=== PATIENT | male | born 1945 | race Caucasian/White ===

== ENCOUNTER 2023-04-07 02:10 | Outpatient (CLI) | payer OTHER, SELFPAY ==
[2023-04-07 08:45] LABS: Abs Immature Grans 0.05 10^3/uL (0.0-0.06); Absolute Lymphocyte Count 0.92 10^3/uL (1.2-3.4); Absolute Monocyte Count 0.88 10^3/uL (0.1-0.8); Basophils % 0.4; Eosinophils % 3.1; HCT 35.8 % (40.0-50.0); HGB 12.2 g/dL (13.5-17.5); Immature Grans % 0.4; Lymphocytes % 8.3; MCH 29.5 pg (27.0-33.0); MCHC 34.1 % (32.0-36.0); MCV 87 fL (80-95); MPV 8.4 fL (8.0-11.0); Monocytes % 7.9; Neutrophils % 79.9; Platelet Count 320 10^3/uL (130-400); RBC 4.14 10^6/uL (4.36-5.78); RDW 12.1 % (11.8-14.1); RDW-SD 38.6 fL; WBC 11.12 10^3/uL (4.4-10.8)
[2023-04-07 08:46] LABS: Absolute Basophil Count 0.04 10^3/uL (0.0-0.2); Absolute Eosinophil Count 0.34 10^3/uL (0.0-0.7); Absolute Neutrophil Count 8.88 10^3/uL (1.2-6.7)
[2023-04-07 09:01] LABS: ALT 13 U/L (16-63); AST 18 U/L (15-37); Albumin 3.8 g/dL (3.4-5.0); Alkaline Phosphatase 104 U/L (46-116); BUN 18 mg/dL (7-18); Bilirubin, Total 0.8 mg/dL (0.2-1.0); CREATININE 0.9 mg/dL (0.70-1.30); Calcium 9.5 mg/dL (8.5-10.1); Chloride 95 mmol/L (98-107); Estimated GFR 88.51 (mL/min/1.73m2); Glucose 213 mg/dL (74-106); Magnesium 1.8 mg/dL (1.8-2.4); Potassium 3.8 mmol/L (3.5-5.1); Sodium 132 mmol/L (136-145); Total Protein 7.6 g/dL (6.4-8.2)
== END 2023-04-07 02:11 | disposition home or self-care (01) ==
LOC: LBO 02:12
PROVIDERS: PCP Internal Medicine Medical Oncology; Visit Provider Internal Medicine Medical Oncology
DX: C15.9 Malignant neoplasm of esophagus, unspecified (principal)
CPT/HCPCS: 36415; 80053; 83735; 85025

== ENCOUNTER 2023-04-15 03:52 | Outpatient (CLI) | payer OTHER, SELFPAY ==
[2023-04-15 10:04] LABS: Abs Immature Grans 0.09 10^3/uL (0.0-0.06); Absolute Basophil Count 0.03 10^3/uL (0.0-0.2); Absolute Eosinophil Count 0.21 10^3/uL (0.0-0.7); Absolute Lymphocyte Count 0.37 10^3/uL (1.2-3.4); Absolute Monocyte Count 0.51 10^3/uL (0.1-0.8); Absolute Neutrophil Count 5.68 10^3/uL (1.2-6.7); Basophils % 0.4; HGB 11.3 g/dL (13.5-17.5); Immature Grans % 1.3; Lymphocytes % 5.4; MCH 29.8 pg (27.0-33.0); MCHC 34.2 % (32.0-36.0); MCV 87 fL (80-95); MPV 8.4 fL (8.0-11.0); Monocytes % 7.4; Neutrophils % 82.5; Platelet Count 344 10^3/uL (130-400); RBC 3.79 10^6/uL (4.36-5.78); RDW-SD 38.5 fL; WBC 6.89 10^3/uL (4.4-10.8)
[2023-04-15 10:34] LABS: ALT 17 U/L (16-63); AST 14 U/L (15-37); Albumin 3.4 g/dL (3.4-5.0); Alkaline Phosphatase 93 U/L (46-116); Anion Gap 9.8 mmol/L (3-11); BUN 17 mg/dL (7-18); Bilirubin, Total 0.6 mg/dL (0.2-1.0); CO2 29.2 mmol/L (21.0-32.0); CREATININE 0.9 mg/dL (0.70-1.30); Calcium 9.1 mg/dL (8.5-10.1); Chloride 94 mmol/L (98-107); Estimated GFR 87.96 (mL/min/1.73m2); Glucose 239 mg/dL (74-106); Magnesium 1.8 mg/dL (1.8-2.4); Potassium 3.4 mmol/L (3.5-5.1); Sodium 133 mmol/L (136-145); Total Protein 7.1 g/dL (6.4-8.2)
== END 2023-04-15 03:53 | disposition home or self-care (01) ==
LOC: LBO 03:52
PROVIDERS: PCP Internal Medicine Medical Oncology; Visit Provider Internal Medicine Medical Oncology
DX: C15.9 Malignant neoplasm of esophagus, unspecified (principal)
CPT/HCPCS: 36415; 80053; 83735; 85025

== ENCOUNTER 2023-04-21 03:37 | Outpatient (CLI) | payer OTHER, SELFPAY ==
[2023-04-21 10:19] LABS: Abs Immature Grans 0.07 10^3/uL (0.0-0.06); Absolute Basophil Count 0.04 10^3/uL (0.0-0.2); Absolute Eosinophil Count 0.07 10^3/uL (0.0-0.7); Absolute Lymphocyte Count 0.21 10^3/uL (1.2-3.4); Absolute Monocyte Count 0.23 10^3/uL (0.1-0.8); Basophils % 0.9; Eosinophils % 1.6; HCT 33.6 % (40.0-50.0); HGB 11.2 g/dL (13.5-17.5); Immature Grans % 1.6; Lymphocytes % 4.9; MCH 29.4 pg (27.0-33.0); MCHC 33.3 % (32.0-36.0); MCV 88 fL (80-95); MPV 8.5 fL (8.0-11.0); Monocytes % 5.4; Neutrophils % 85.6; Platelet Count 210 10^3/uL (130-400); RBC 3.81 10^6/uL (4.36-5.78); RDW 12.3 % (11.8-14.1); RDW-SD 39.5 fL; WBC 4.26 10^3/uL (4.4-10.8)
[2023-04-21 10:27] LABS: Absolute Neutrophil Count 3.65 10^3/uL (1.2-6.7)
[2023-04-21 10:38] LABS: ALT 25 U/L (16-63); AST 19 U/L (15-37); Albumin 3.4 g/dL (3.4-5.0); Alkaline Phosphatase 92 U/L (46-116); Anion Gap 8.1 mmol/L (3-11); BUN 12 mg/dL (7-18); Bilirubin, Total 0.9 mg/dL (0.2-1.0); CO2 26.9 mmol/L (21.0-32.0); CREATININE 0.8 mg/dL (0.70-1.30); Calcium 8.9 mg/dL (8.5-10.1); Chloride 97 mmol/L (98-107); Estimated GFR 91.15 (mL/min/1.73m2); Glucose 192 mg/dL (74-106); Magnesium 1.4 mg/dL (1.8-2.4); Potassium 3.9 mmol/L (3.5-5.1); Sodium 132 mmol/L (136-145); Total Protein 7.1 g/dL (6.4-8.2)
== END 2023-04-21 03:38 | disposition home or self-care (01) ==
LOC: LBO 03:37
PROVIDERS: PCP Internal Medicine Medical Oncology; Visit Provider Internal Medicine Medical Oncology
DX: C15.9 Malignant neoplasm of esophagus, unspecified (principal)
CPT/HCPCS: 36415; 80053; 83735; 85025

== ENCOUNTER 2023-04-28 04:27 | Outpatient (CLI) | payer OTHER, SELFPAY ==
[2023-04-28 09:57] LABS: Abs Immature Grans 0.02 10^3/uL (0.0-0.06); Absolute Basophil Count 0.03 10^3/uL (0.0-0.2); Absolute Eosinophil Count 0.02 10^3/uL (0.0-0.7); Absolute Lymphocyte Count 0.14 10^3/uL (1.2-3.4); Absolute Neutrophil Count 2.02 10^3/uL (1.2-6.7); Basophils % 1.2; Eosinophils % 0.8; HCT 32.4 % (40.0-50.0); Immature Grans % 0.8; Lymphocytes % 5.5; MCH 29.5 pg (27.0-33.0); MCV 87 fL (80-95); MPV 8.6 fL (8.0-11.0); Monocytes % 11.9; Neutrophils % 79.8; Platelet Count 162 10^3/uL (130-400); RBC 3.73 10^6/uL (4.36-5.78); RDW 12.4 % (11.8-14.1); WBC 2.53 10^3/uL (4.4-10.8)
[2023-04-28 10:11] LABS: ALT 25 U/L (16-63); AST 16 U/L (15-37); Albumin 3.1 g/dL (3.4-5.0); Alkaline Phosphatase 86 U/L (46-116); Anion Gap 9.2 mmol/L (3-11); BUN 10 mg/dL (7-18); Bilirubin, Total 0.5 mg/dL (0.2-1.0); CO2 26.8 mmol/L (21.0-32.0); CREATININE 0.8 mg/dL (0.70-1.30); Chloride 97 mmol/L (98-107); Estimated GFR 91.15 (mL/min/1.73m2); Glucose 194 mg/dL (74-106); Magnesium 1.5 mg/dL (1.8-2.4); Sodium 133 mmol/L (136-145); Total Protein 6.8 g/dL (6.4-8.2)
[2023-04-28 10:18] LABS: Potassium 2.9 mmol/L (3.5-5.1)
== END 2023-04-28 04:28 | disposition home or self-care (01) ==
LOC: LBO 04:27
PROVIDERS: PCP Internal Medicine Medical Oncology; Visit Provider Internal Medicine Medical Oncology
DX: C15.9 Malignant neoplasm of esophagus, unspecified (principal)
CPT/HCPCS: 36415; 80053; 83735; 85025

== ENCOUNTER 2023-05-05 04:15 | Outpatient (CLI) | payer OTHER, SELFPAY ==
[2023-05-05 09:48] LABS: Abs Immature Grans 0.01 10^3/uL (0.0-0.06); HCT 29.5 % (40.0-50.0); HGB 10.1 g/dL (13.5-17.5); MCH 29.9 pg (27.0-33.0); MCHC 34.2 % (32.0-36.0); MCV 87 fL (80-95); MPV 8.3 fL (8.0-11.0); Platelet Count 142 10^3/uL (130-400); RBC 3.38 10^6/uL (4.36-5.78); RDW 13.7 % (11.8-14.1); RDW-SD 41.1 fL; WBC 2.98 10^3/uL (4.4-10.8)
[2023-05-05 10:05] LABS: ALT 15 U/L (16-63); AST 13 U/L (15-37); Albumin 2.9 g/dL (3.4-5.0); Alkaline Phosphatase 86 U/L (46-116); Anion Gap 11.6 mmol/L (3-11); BUN 12 mg/dL (7-18); Bilirubin, Total 0.8 mg/dL (0.2-1.0); CO2 24.4 mmol/L (21.0-32.0); CREATININE 0.8 mg/dL (0.70-1.30); Calcium 8.4 mg/dL (8.5-10.1); Chloride 100 mmol/L (98-107); Estimated GFR 91.15 (mL/min/1.73m2); Glucose 184 mg/dL (74-106); Magnesium 1.2 mg/dL (1.8-2.4); Potassium 3.5 mmol/L (3.5-5.1); Sodium 136 mmol/L (136-145); Total Protein 6.5 g/dL (6.4-8.2)
[2023-05-05 10:06] LABS: Absolute Lymphocyte Count 0.21 10^3/uL (1.2-3.4); Absolute Monocyte Count 0.45 10^3/uL (0.1-0.8); Absolute Neutrophil Count 2.29 10^3/uL (1.2-6.7); Bands % 2; Diff Comment Manual Differential; Metamyelocytes % 1; RBC Morphology Normal
== END 2023-05-05 04:16 | disposition home or self-care (01) ==
LOC: LBO 04:15
PROVIDERS: PCP Internal Medicine Medical Oncology; Visit Provider Internal Medicine Medical Oncology
DX: C15.9 Malignant neoplasm of esophagus, unspecified (principal)
CPT/HCPCS: 36415; 80053; 83735; 85025

== ENCOUNTER 2023-05-21 16:23 | Outpatient (CLI) | payer OTHER, SELFPAY ==
[2023-05-21 13:09] LABS: Abs Immature Grans 0.17 10^3/uL (0.0-0.06); Absolute Basophil Count 0.03 10^3/uL (0.0-0.2); Absolute Eosinophil Count 0.03 10^3/uL (0.0-0.7); Absolute Lymphocyte Count 0.22 10^3/uL (1.2-3.4); Absolute Monocyte Count 0.98 10^3/uL (0.1-0.8); Absolute Neutrophil Count 3.43 10^3/uL (1.2-6.7); Basophils % 0.6; Eosinophils % 0.6; HCT 30.7 % (40.0-50.0); HGB 10.4 g/dL (13.5-17.5); Immature Grans % 3.5; Lymphocytes % 4.5; MCH 30.1 pg (27.0-33.0); MCHC 33.9 % (32.0-36.0); MCV 89 fL (80-95); MPV 8.1 fL (8.0-11.0); Monocytes % 20.2; Neutrophils % 70.6; Platelet Count 328 10^3/uL (130-400); RBC 3.45 10^6/uL (4.36-5.78); RDW 15.3 % (11.8-14.1); WBC 4.86 10^3/uL (4.4-10.8)
[2023-05-21 13:23] LABS: ALT 19 U/L (16-63); AST 18 U/L (15-37); Albumin 3.5 g/dL (3.4-5.0); Alkaline Phosphatase 99 U/L (46-116); Anion Gap 10.9 mmol/L (3-11); BUN 23 mg/dL (7-18); Bilirubin, Total 0.3 mg/dL (0.2-1.0); CO2 25.1 mmol/L (21.0-32.0); CREATININE 1.1 mg/dL (0.70-1.30); Calcium 8.8 mg/dL (8.5-10.1); Chloride 94 mmol/L (98-107); Estimated GFR 69.14 (mL/min/1.73m2); Glucose 232 mg/dL (74-106); Magnesium 1.8 mg/dL (1.8-2.4); Potassium 4.8 mmol/L (3.5-5.1); Sodium 130 mmol/L (136-145); Total Protein 7.2 g/dL (6.4-8.2)
== END 2023-05-21 16:24 | disposition home or self-care (01) ==
LOC: LBO 16:27
PROVIDERS: PCP Internal Medicine Medical Oncology; Visit Provider Internal Medicine Medical Oncology
DX: C15.9 Malignant neoplasm of esophagus, unspecified (principal)
CPT/HCPCS: 36415; 80053; 83735; 85025

== ENCOUNTER 2023-05-26 16:32 | Outpatient (CLI) | payer OTHER, SELFPAY ==
[2023-05-26 12:45] LABS: Abs Immature Grans 0.07 10^3/uL (0.0-0.06); Absolute Basophil Count 0.04 10^3/uL (0.0-0.2); Absolute Eosinophil Count 0.05 10^3/uL (0.0-0.7); Absolute Lymphocyte Count 0.37 10^3/uL (1.2-3.4); Absolute Monocyte Count 0.96 10^3/uL (0.1-0.8); Basophils % 0.6; Eosinophils % 0.7; HCT 31.4 % (40.0-50.0); HGB 10.7 g/dL (13.5-17.5); Lymphocytes % 5.4; MCH 30.7 pg (27.0-33.0); MCHC 34.1 % (32.0-36.0); MCV 90 fL (80-95); Monocytes % 14.1; Neutrophils % 78.2; RBC 3.48 10^6/uL (4.36-5.78); RDW-SD 51.5 fL; WBC 6.79 10^3/uL (4.4-10.8)
[2023-05-26 13:06] LABS: Diff Comment Diff Reviewed; RBC Morphology Normal
[2023-05-26 13:14] LABS: ALT 23 U/L (16-63); AST 19 U/L (15-37); Albumin 3.3 g/dL (3.4-5.0); Alkaline Phosphatase 92 U/L (46-116); Anion Gap 9.4 mmol/L (3-11); BUN 21 mg/dL (7-18); Bilirubin, Total 0.3 mg/dL (0.2-1.0); CO2 27.6 mmol/L (21.0-32.0); CREATININE 0.9 mg/dL (0.70-1.30); Calcium 8.9 mg/dL (8.5-10.1); Chloride 98 mmol/L (98-107); Estimated GFR 87.96 (mL/min/1.73m2); Glucose 245 mg/dL (74-106); Magnesium 1.9 mg/dL (1.8-2.4); Potassium 4.3 mmol/L (3.5-5.1); Sodium 135 mmol/L (136-145); Total Protein 6.7 g/dL (6.4-8.2)
== END 2023-05-26 16:33 | disposition home or self-care (01) ==
LOC: LBO 16:33
PROVIDERS: PCP Internal Medicine Medical Oncology; Visit Provider Internal Medicine Medical Oncology
DX: C15.9 Malignant neoplasm of esophagus, unspecified (principal)
CPT/HCPCS: 36415; 80053; 83735; 85025

== ENCOUNTER 2023-06-23 02:49 | Outpatient (CLI) | payer OTHER, SELFPAY ==
[2023-06-23 14:39] LABS: Abs Immature Grans 0.02 10^3/uL (0.0-0.06); Absolute Basophil Count 0.04 10^3/uL (0.0-0.2); Absolute Eosinophil Count 0.21 10^3/uL (0.0-0.7); Absolute Lymphocyte Count 0.38 10^3/uL (1.2-3.4); Absolute Monocyte Count 0.79 10^3/uL (0.1-0.8); Absolute Neutrophil Count 4.23 10^3/uL (1.2-6.7); Basophils % 0.7; Eosinophils % 3.7; HGB 10.5 g/dL (13.5-17.5); Immature Grans % 0.4; Lymphocytes % 6.7; MCH 31.5 pg (27.0-33.0); MCHC 32.8 % (32.0-36.0); MCV 96 fL (80-95); MPV 8.3 fL (8.0-11.0); Monocytes % 13.9; Neutrophils % 74.6; Platelet Count 239 10^3/uL (130-400); RBC 3.33 10^6/uL (4.36-5.78); RDW 16.9 % (11.8-14.1); RDW-SD 59.3 fL; WBC 5.67 10^3/uL (4.4-10.8)
[2023-06-23 14:54] LABS: ALT 26 U/L (16-63); AST 22 U/L (15-37); Albumin 3.6 g/dL (3.4-5.0); Alkaline Phosphatase 137 U/L (46-116); Anion Gap 9.8 mmol/L (3-11); BUN 22 mg/dL (7-18); Bilirubin, Total 0.4 mg/dL (0.2-1.0); CO2 25.2 mmol/L (21.0-32.0); CREATININE 0.7 mg/dL (0.70-1.30); Calcium 9.1 mg/dL (8.5-10.1); Chloride 101 mmol/L (98-107); Glucose 121 mg/dL (74-106); Potassium 4.1 mmol/L (3.5-5.1); Sodium 136 mmol/L (136-145); Total Protein 7.3 g/dL (6.4-8.2)
== END 2023-06-23 02:50 | disposition home or self-care (01) ==
PROVIDERS: PCP Internal Medicine Medical Oncology; Visit Provider Internal Medicine Medical Oncology
DX: C15.9 Malignant neoplasm of esophagus, unspecified (principal); R79.89 Other specified abnormal findings of blood chemistry
CPT/HCPCS: 36415; 80053; 83735; 85025